=== PATIENT | female | born 1955 | race Caucasian/White ===

== ENCOUNTER → 2022-03-23 | Outpatient (CLI) | payer MEDICARE ==
--- NOTE | 2022-03-23 15:06 | KCIC ---
XR EXAM OF BILATERAL ANKLE 3V , XR BILAT FEET 3 VIEWS History: Pain Comparison: None. Findings: Diffusely decreased osseous mineralization. No acute fracture or dislocation. Normal alignment at the ankle mortise. Normal nonweightbearing alignment of the Lisfranc joint bilaterally. Bilateral nonwei ghtbearing appearance of hallux valgus. Mild degenerative changes of the tibiotalar joints bilaterall y. Bilateral type II os navicular. No focal soft tissue swelling. Impression: 1. Diffuse decreased osseous mineralization without acute osseous abnormality in the bilateral feet and ankles. 2. Mild degenerative changes bilaterally and bilateral hallux valgus. Electronically signed by: Calvin Kilgore MD (03/23/2022 3:04 PM) [id number]
== END ==
LOC: KCIC 11:40
PROVIDERS: ATTEND Family Medicine
DX: M19.071 Primary osteoarthritis, right ankle and foot (principal); M19.072 Primary osteoarthritis, left ankle and foot; M20.12 Hallux valgus (acquired), left foot; M20.11 Hallux valgus (acquired), right foot; M85.871 Other specified disorders of bone density and structure, right ankle and foot; M85.872 Other specified disorders of bone density and structure, left ankle and foot
CPT/HCPCS: 73610-50; 73630-50